=== PATIENT | male | born 1990 | race Caucasian/White ===

== ENCOUNTER 2020-02-08 16:55 | Emergency (ER) | payer OTHER ==
[2020-02-08 17:02] VITALS: BP 110/75; PULSE 88; RESP 18; TEMP 98.9
[2020-02-08] MEDS ORDERED: PIPERACILLIN-TAZOBACTAM 3.375 GM in SODIUM CHLORIDE 0.9% 100 ML IVPB STA (17:10)
[2020-02-08] MEDS ORDERED: AMPICILLIN-SULBACTAM 3 GM in SODIUM CHLORIDE 0.9% 100 ML IVPB STA (17:14)
[2020-02-08] MEDS ORDERED: SODIUM CHLORIDE 0.9% 1,000 ML IV SCH (17:15)
[2020-02-08 17:36] LABS: Basophils # (A) 0.1 k/uL (0-0.2); Basophils % (A) 1 %; Eosinophils # (A) 0.2 k/uL (0-0.7); Eosinophils % (A) 2 %; HCT 42.9 % (39.0-53.0); HGB 14.5 gm/dL (13.0-17.5); Lymphocytes # (A) 1.2 k/uL (1.0-4.8); Lymphocytes % (A) 13 %; MCH 31.2 pg (25.0-35.0); MCHC 33.8 g/dL (31.0-37.0); MCV 92.2 fL (80.0-100.0); Monocytes # (A) 0.4 k/uL (0-1.0); Monocytes % (A) 4 %; Neutrophils # (A) 7.3 k/uL (1.3-7.7); Neutrophils % (A) 79 %; Platelet Count 205 k/uL (150-450); RBC 4.66 m/uL (4.30-5.90); RDW 12.2 % (11.5-15.5); WBC 9.2 k/uL (3.8-10.6)
[2020-02-08] MEDS: SODIUM CHLORIDE 0.9% 500 ML 500 ML IV SCH ×2 (17:43→19:24)
[2020-02-08 17:45] LABS: ALT 21 U/L (4-49); AST 28 U/L (17-59); African American GFR (CKD) >90 (>60 ml/min/1.73 sqM); Albumin 3.4 g/dL (3.5-5.0); Alkaline Phosphatase 74 U/L (38-126); Anion Gap 7 mmol/L; Blood Urea Nitrogen 13 mg/dL (9-20); Carbon Dioxide 26 mmol/L (22-30); Chloride 104 mmol/L (98-107); Glucose 105 mg/dL (74-99); Non-African American GFR(CKD) >90 (>60 ml/min/1.73 sqM); Sodium 137 mmol/L (137-145); Total Bilirubin 0.5 mg/dL (0.2-1.3); Total Protein 6.5 g/dL (6.3-8.2)
[2020-02-08 17:46] LABS: Prothrombin Time 10.4 sec (9.0-12.0)
[2020-02-08] MEDS ORDERED: MORPHINE SULFATE 4 MG/ML SYRINGE IVP STA (17:47)
[2020-02-08 17:54] LABS: Potassium 3.8 mmol/L (3.5-5.1)
--- NOTE | 2020-02-08 18:40 | ED ---
General Adult HPI - General Chief complaint: Abdominal Pain Stated complaint: crohn's disease, Sent by PCP Time Seen by Provider: 02/08/20 17:04 Source: patient, RN notes reviewed, old records reviewed Mode of arrival: ambulatory Limitations: no limitations - History of Present Illness Initial comments: 29-year-old male patient with history of Crohn's disease presents ED for evaluation. Patient had an outpatient CAT scan performed by his primary care pr thom due to abdominal pain for the last 2 weeks. Patient was called by his primary care provider urging him to present to emergency department due to an abscess. Patient reports that the abdominal pain is in the right lower quadrant region. Patient reports that he did have a fever about a week ago. 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 Dale Balderas at [facility] about 6 years ago. Has not seen a surgeon or GI since. Denies any other acute complaints. Systemic: Pt denies fatigue, rash. Pt denies weakness, night sweats, weight loss. Neuro: Pt denies headache, visual disturbances, syncope or pre-syncope. HEENT: Pt denies ocular discharge or irritation, otalgia, rhinorrhea, pharyngitis or notable lymphadenopathy. Cardiopulmonary: Pt denies chest pain, SOB, heart palpitations, dyspnea on exertion. Abdominal/GI: Pt denies n/v/d. : Pt denies dysuria, burning w/ urination, frequency/urgency. Denies new onset urinary or bowel incontinence. MSK: Pt denies myalgia, loss of strength or function in extremities. Neuro: Pt denies new onset weakness, paresthesias. - Related Data Home Medications Medication Instructions Recorded Confirmed Multivitamins, Thera [Multivitamin 1 tab PO DAILY 02/08/20 02/08/20 (formulary)] Allergies Allergy/AdvReac Type Severity Reaction Status Date / Time No Known Allergies Allergy Verified 02/08/20 18:25 Review of Systems ROS Statement: Those systems with pertinent positive or pertinent negative responses have been documented in the HPI. ROS Other: All systems not noted in ROS Statement are negative. Past Medical History Additional Past Medical History / Comment(s): crohns History of Any Multi-Drug Resistant Organisms: None Reported Past Surgical History: Appendectomy, Bowel Resection Past Psychological History: No Psychological Hx Reported Smoking Status: Never smoker Past Alcohol Use History: None Reported Past Drug Use History: None Reported General Exam - General Exam Comments Initial Comments: Constitutional: NAD, AOX3, Pt has pleasant affect. HEENT: NC/AT, trachea midline, neck supple, no lymphadenopathy. External ears appear normal, without discharge. Mucous membranes moist. Eyes PERRLA, EOM intact. There is no scleral icterus. No pallor noted. Cardiopulmonary: RRR, no murmurs, rubs or gallops, no JVD noted. Lungs CTAB in anterior and posterior kaiser. No peripheral edema. Abdominal exam: Abdomen soft and non-distended. Abdomen mildly tender to palpation in RLQ. Bowel sounds active in LLQ. No hepatosplenomegaly. No ecchymosis Neuro: CN II-XII grossly intact. No nuchal rigidity. No raccon eyes, no kline sign, no hemotympanum. No cervical spinal tenderness. MSK: No posterior calf tenderness bilaterally, homans sign negative bilaterally. Posterior tibialis and radial pulse +2 bilaterally. Sensation intact in upper and lower extremities. Full active ROM in upper and lower extremities, 5/5 stregnth. Limitations: no limitations Course Vital Signs 02/08/20 16:59 Temperature 98.9 F Pulse Rate 88 Respiratory 18 Rate Blood Pressure 110/75 O2 Sat by Pulse 99 Oximetry Medical Decision Making - Medical Decision Making 29-year-old male patient with Crohn's to ED for abdominal abscess outpatient CT done today. Laboratory investigations are overall unremarkable. Mild tenderness in right lower quadrant. Vital signs are stable afebrile her. CT of abdomen and pelvis is reviewed displays 5 cm length of severe distal ileitis, associated inflammatory soft tissue thickening consistent with contained perforation and early abscess measuring 4 x 2 cm. Also a possible small bowel obstruction. Bowel sounds are active and patient does report that he did have a bowel movement earlier today. Case was discussed with Dr. Goodwin who discussed case with our contract manager surgeon. Patient will be transferred down to [facility] for continuity of care with his previously established surgeon Dr. Balderas. Initiated on unasyn. Accepting physician Dr. Velásquez. Patient is in agreement with plan. - Lab Data Result diagrams: 02/08/20 17:28 02/08/20 17:28 Lab Results 02/08/20 02/08/20 02/08/20 Range/Units 17:28 17:28 17:28 WBC 9.2 (3.8-10.6) k/uL RBC 4.66 (4.30-5.90) m/uL Hgb 14.5 (13.0-17.5) gm/dL Hct 42.9 (39.0-53.0) % MCV 92.2 (80.0-100.0) fL MCH 31.2 (25.0-35.0) pg MCHC 33.8 (31.0-37.0) g/dL RDW 12.2 (11.5-15.5) % Plt Count 205 (150-450) k/uL Neutrophils % 79 % Lymphocytes % 13 % Monocytes % 4 % Eosinophils % 2 % Basophils % 1 % Neutrophils # 7.3 (1.3-7.7) k/uL Lymphocytes # 1.2 (1.0-4.8) k/uL Monocytes # 0.4 (0-1.0) k/uL Eosinophils # 0.2 (0-0.7) k/uL Basophils # 0.1 (0-0.2) k/uL PT 10.4 (9.0-12.0) sec INR 1.0 (<1.2) APTT 27.0 (22.0-30.0) sec Sodium 137 (137-145) mmol/L Potassium 3.8 (3.5-5.1) mmol/L Chloride 104 (98-107) mmol/L Carbon Dioxide 26 (22-30) mmol/L Anion Gap 7 mmol/L BUN 13 (9-20) mg/dL Creatinine 0.85 (0.66-1.25) mg/dL Est GFR (CKD-EPI)AfAm >90 (>60 ml/min/1.73 sqM) Est GFR (CKD-EPI)NonAf >90 (>60 ml/min/1.73 sqM) Glucose 105 H (74-99) mg/dL Plasma Lactic Acid Thang (0.7-2.0) mmol/L Calcium 9.0 (8.4-10.2) mg/dL Total Bilirubin 0.5 (0.2-1.3) mg/dL AST 28 (17-59) U/L ALT 21 (4-49) U/L Alkaline Phosphatase 74 (38-126) U/L Total Protein 6.5 (6.3-8.2) g/dL Albumin 3.4 L (3.5-5.0) g/dL 02/08/20 Range/Units 17:28 WBC (3.8-10.6) k/uL RBC (4.30-5.90) m/uL Hgb (13.0-17.5) gm/dL Hct (39.0-53.0) % MCV (80.0-100.0) fL MCH (25.0-35.0) pg MCHC (31.0-37.0) g/dL RDW (11.5-15.5) % Plt Count (150-450) k/uL Neutrophils % % Lymphocytes % % Monocytes % % Eosinophils % % Basophils % % Neutrophils # (1.3-7.7) k/uL Lymphocytes # (1.0-4.8) k/uL Monocytes # (0-1.0) k/uL Eosinophils # (0-0.7) k/uL Basophils # (0-0.2) k/uL PT (9.0-12.0) sec INR (<1.2) APTT (22.0-30.0) sec Sodium (137-145) mmol/L Potassium (3.5-5.1) mmol/L Chloride (98-107) mmol/L Carbon Dioxide (22-30) mmol/L Anion Gap mmol/L BUN (9-20) mg/dL Creatinine (0.66-1.25) mg/dL Est GFR (CKD-EPI)AfAm (>60 ml/min/1.73 sqM) Est GFR (CKD-EPI)NonAf (>60 ml/min/1.73 sqM) Glucose (74-99) mg/dL Plasma Lactic Acid Thang 1.0 (0.7-2.0) mmol/L Calcium (8.4-10.2) mg/dL Total Bilirubin (0.2-1.3) mg/dL AST (17-59) U/L ALT (4-49) U/L Alkaline Phosphatase (38-126) U/L Total Protein (6.3-8.2) g/dL Albumin (3.5-5.0) g/dL Disposition Clinical Impression: Abscess of intestine due to Crohn's disease Disposition: OTHER INSTITUTION NOT DEFINED Condition: Serious Is patient prescribed a controlled substance at d/c from ED?: No Referrals: Giacomo Asif [Primary Care Provider] - 1-2 days - Out of Hospital Transfer - Req. Specs Out of Hospital Transfer - Requested Specifics: Other Emergency Center ([facility])
[2020-02-08 19:13] LABS: Appearance,Urine Clear (Clear); Bilirubin,Urine Negative (Negative); Blood,Urine Negative (Negative); Color,Urine Yellow; Glucose,Urine (UA) Negative (Negative); Ketones,Urine Negative (Negative); Leukocyte Esterase,Urine Negative (Negative); Nitrite,Urine Negative (Negative); Protein,Urine Trace (Negative); Urobilinogen,Urine <2.0 mg/dL (<2.0)
== END 2020-02-08 19:30 | disposition other institution (70) ==
LOC: EC 16:55
DX: K50.914 Crohn's disease, unspecified, with abscess (principal); K52.9 Noninfective gastroenteritis and colitis, unspecified; Z90.49 Acquired absence of other specified parts of digestive tract
CPT/HCPCS: 99285 ×2; 96374 ×2; 96375 ×2; 96361 ×2; 36415; 80053; 83605; 85025; 85610; 85730; 81003; 87040; 74177; J2270; J0295; Q9967 ×2

== ENCOUNTER → 2020-02-08 | Outpatient (CLI) | payer OTHER ==
--- NOTE | 2020-02-08 17:01 | CT ---
EXAMINATION TYPE: CT abdomen pelvis w con DATE OF EXAM: 02/08/2020 COMPARISON: 01/17/2014 HISTORY: 29-year-old male Crohn's disease, RLQ pain TECHNIQUE: Contiguous axial scanning of the abdomen and pelvis following administration of 100 ml Iso brittny 300 IV contrast. Delayed images through the kidneys and coronal/sagittal reconstructions perform ed. CT DLP: 361.7 mGycm Automated exposure control for dose reduction was used. FINDINGS: Heart normal size without pericardial effusion. Lung bases clear without pleural effusion. Liver normal size. No focal lesion. Portal venous system is patent. No biliary ductal dilatation. Gallbladder, adrenal glands, kidneys, spleen, and pancreas within normal limits. Numerous scattered nonenlarged into mild to moderately enlarged mesenteric lymph nodes throughout, la rgest in the right lower quadrant measuring up to 1.8 cm short axis, refer to coronal image 32. There is moderate stool burden. This seems to be some small bowel anastomotic staple lines in the mid lower abdomen. Dilated small bowel loops in the right lower and mid lower abdomen measuring up to 4.1 cm. Some of th fadumo dilated loops are at the level of the surgery. 2 cm proximal to the terminal ileum, there is a 5 mm long segment of very thickened, irregular, and a bnormal small bowel (refer to sagittal image 36). Contiguous with this area extending inferiorly, is a peripherally enhancing area of mottled low densi ty measuring 4.3 cm craniocaudal by 2.4 x 1.9 cm, refer to axial image 46 and coronal image 28. Also, sagittal image 37. Associated inflammatory soft tissue thickening throughout this region, for example, axial image 49. Moderate stool burden. The sigmoid colon is largely collapsed and not well assessed. Mild right pelvic free fluid. Bladder urine distended. Bones: No osseous destructive process. IMPRESSION: 1. A 5 CM LENGTH OF SEVERE DISTAL ILEITIS. THIS IS LOCATED 2 CM PRIOR TO THE ILEOCECAL JUNCTION. THER E IS ASSOCIATED INFLAMMATORY SOFT TISSUE THICKENING AND FINDINGS CONCERNING FOR AN ADJACENT CONTAINED PERFORATION AND EARLY ABSCESS MEASURING 4.3 X 2.4 CM. 2. FINDINGS MAY BE CONTRIBUTING TO A PARTIAL SMALL BOWEL OBSTRUCTION GIVEN SMALL BOWEL LOOPS JUST PRO XIMALLY DILATED UP TO 4.1 CM. 3. REACTIVE MESENTERIC LYMPHADENOPATHY MEASURING UP TO 1.8 CM. Findings discussed with Dr. Asif on the phone around noon.
== END | disposition home or self-care (01) ==
LOC: RADCTMAIN 09:04
PROVIDERS: ATTEND Family Medicine
DX: K52.9 Noninfective gastroenteritis and colitis, unspecified (principal); R59.0 Localized enlarged lymph nodes; K50.90 Crohn's disease, unspecified, without complications
CPT/HCPCS: 74177; Q9967 ×2

== ENCOUNTER 2020-09-06 10:22 | Day surgery (SDC) | payer OTHER ==
[2020-09-05 13:03] VITALS: BMI 18.6
[~2020-09-06 10:22] MED LIST: LACTATED RINGERS 1,000 ML IV SCH
[2020-09-06 10:48] VITALS: TEMP 97.3
[2020-09-06] MEDS ORDERED: LIDOCAINE 1% (10MG/ML) FOR IV START INTRADERMA ONE (10:50)
[2020-09-06] MEDS ORDERED: PROPOFOL 10 MG/ML 20 ML VIAL IV ONE (11:18)
[2020-09-06] MEDS ORDERED: LIDOCAINE 1% INJ 10MG/ML (20 ML MDV) ONE (11:18)
--- NOTE | 2020-09-06 11:44 | P.PCN ---
Date of Procedure: 09/06/20 Procedure(s) Performed: BRIEF HISTORY: Patient is a 30-year-old pleasant male scheduled for an elective colonoscopy as a part of evaluation of long-standing history of Crohn's ileitis diagnosed in 2007. He underwent TI resection in 2007 and subsequently was treated with Remicade infusions for a few years. 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 Since 2013 his family taking any medications admitted to this examination. PROCEDURE PERFORMED: Colonoscop with biopsy. PREOPERATIVE DIAGNOSIS: Long standing history of Crohn's disease. IV sedation per Anesthesia. PROCEDURE: After informed consent was obtained, the patient, was brought into the endoscopy unit. IV sedation was administered by Anesthesia under continuous monitoring. Digital rectal examination was normal. Initially the Olympus CF-160 flexible video colonoscope was then inserted in the rectum, gradually advanced into the right colon. The ileocolonic anastomosis was visualized. There is significant narrowing of the ileocolonic anastomosis noted with mild erythema., Biopsies were done from the anastomotic stricture. Mucosa of the transverse colon, descending colon, sigmoid colon, and rectum appeared normal. Retroflexion was performed in the rectum and no lesions were seen. The patient tolerated the procedure well. IMPRESSION: Significant narrowing of the liquid anastomosis with mild erythema consistent with mild recurrent Crohn's Rest of the colon appeared normal RECOMMENDATIONS: Findings of this examination were discussed with the patient as well as his family. He'll follow with the biopsy results and treat in office in 2-3 weeks. The biopsies revealed active disease maybe a candidate for biologic for management of Crohn's disease..
[2020-09-06 11:49] VITALS: RESP 16
[2020-09-06 12:19] VITALS: BP 97/63; PULSE 50
== END 2020-09-06 12:29 | disposition home or self-care (01) ==
LOC: ORWHC2ENDO 10:22
PROVIDERS: ATTEND Internal Medicine Gastroenterology
DX: K50.00 Crohn's disease of small intestine without complications (principal); F17.210 Nicotine dependence, cigarettes, uncomplicated
CPT/HCPCS: 88305; 45380; J2001; J2704